=== PATIENT | female | born 1995 | race Caucasian/White ===

== ENCOUNTER 2017-07-05 21:30 | Emergency (ER) | payer OTHER ==
[~2017-07-05] VITALS: Ht 157.5 cm; Wt 79.4 kg
[2017-07-05 21:49] VITALS: BP 102/62; Ht 157.5 cm; Wt 79.4 kg
== END 2017-07-05 23:02 | disposition left against medical advice (07) ==
LOC: ED 21:30
DX: Z53.21 Procedure and treatment not carried out due to patient leaving prior to being seen by health care provider (principal)
CPT/HCPCS: 82962